=== PATIENT | male | born 1980 | race Two or more races ===

== ENCOUNTER 2020-02-02 13:02 | Emergency (ER) | payer SELFPAY ==
[~2020-02-02] VITALS: Ht 182.9 cm; Wt 75.7 kg
--- NOTE | 2020-02-02 13:10 | NUR ---
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 Patient a/ox4, breathing even and unlabored, no sob noted. Needs attended.
[2020-02-02] MEDS ORDERED: TDAP [DIPH/PERTUSSIS/TET] 0.5 ML VIAL IM ONE ×2 (13:51→14:00)
[2020-02-02 14:32] VITALS: BP 136/84
--- NOTE | 2020-02-02 14:32 | NUR ---
LAC REPAIR DONE. Patient discharged to home in stable condition. Written and verbal after care instructions given. Patient verbalizes understanding of instruction.
== END 2020-02-02 14:32 | disposition home or self-care (01) ==
LOC: ER 13:06
DX: S61.210A Laceration without foreign body of right index finger without damage to nail, initial encounter (principal); W25.XXXA Contact with sharp glass, initial encounter; Y93.89 Activity, other specified; Y92.89 Other specified places as the place of occurrence of the external cause; Y99.8 Other external cause status
CPT/HCPCS: 90715

== ENCOUNTER 2021-07-11 20:38 | Emergency (ER) | payer MEDICAID ==
[~2021-07-11] VITALS: Ht 175.3 cm; Wt 72.6 kg
[2021-07-11] MEDS ORDERED: IBUP-1955 PO (22:32)
[2021-07-11 23:05] VITALS: BP 124/88
--- NOTE | 2021-07-11 23:05 | NUR ---
Patient discharged to home in stable condition. Written and verbal after care instructions given. Patient verbalizes understanding of instruction.
== END 2021-07-11 23:06 | disposition home or self-care (01) ==
LOC: ER 20:45
DX: S86.811A Strain of other muscle(s) and tendon(s) at lower leg level, right leg, initial encounter (principal); R07.89 Other chest pain; M54.6 Pain in thoracic spine; Z60.2 Problems related to living alone; V49.49XA Driver injured in collision with other motor vehicles in traffic accident, initial encounter; Y93.89 Activity, other specified; Y92.413 State road as the place of occurrence of the external cause; Y99.8 Other external cause status
CPT/HCPCS: 71045-TC; 73590-TC